=== PATIENT | female | born 1950 | race Two or more races ===

== ENCOUNTER 2016-12-09 09:58 | Inpatient (IN) | payer SELFPAY ==
[~2016-12-09] VITALS: Ht 157.5 cm; Wt 86.0 kg
[2016-12-09] MEDS ORDERED: SODIUM CHLORIDE 0.9% 1,000 ML IV ONE (10:32)
[2016-12-09 11:11] LABS: Basophils # (auto) 0.1 uL; Basophils % (auto) 0.8 % (0.0-2.0); Eosinophils # (auto) 0.1 uL; Eosinophils % (auto) 1.6 % (0.0-7.0); Hematocrit 32.6 % (36.0-46.0); Hemoglobin 10.8 g/dL (12.2-16.2); Lymphocytes # (auto) 1.1 uL; Lymphocytes % (auto) 11.4 % (10.0-50.0); Mean Corpuscular Hemoglobin 29.4 pg (28.0-32.0); Monocytes # (auto) 0.5 uL; Monocytes % (auto) 5.6 % (0.0-12.0); Neutrophils # (auto) 7.5 uL; Neutrophils % (auto) 80.6 % (37.0-80.0); Platelet Count (auto) 170 10^3/uL (140-450); Red Cell Distribution Width 16.1 % (11.8-14.3); White Blood Cell 9.3 10^3/uL (4.4-10.8)
[2016-12-09 11:21] LABS: INR 1.12 (0.9-1.15); Partial Thromboplastin Time 28.4 sec (22.64-33.71); Prothrombin Time 12.2 sec (9.37-12.3)
[2016-12-09 11:37] LABS: Lactic Acid w/Reflex 3.1 mmol/L (0.4-2.0)
[2016-12-09 11:42] LABS: REFLEX LACTIC ACID YES OR NO YES
[2016-12-09 11:42] LABS: Albumin 2.8 g/dL (3.4-5.0); BUN/Creatinine Ratio 5.3; Bilirubin, Total 0.4 mg/dL (0.2-1.0); Calcium 6.3 mg/dL (8.5-10.1); Potassium 5.3 mmol/L (3.5-5.1); Total Protein 7.3 g/dL (6.4-8.2)
[2016-12-09 11:51] LABS: B-Type Natriuretic Peptide 1652.36 pg/mL (0-100)
[2016-12-09 12:10] LABS: Temperature: 22.7 C (20.0-25.0)
[2016-12-09] MEDS ORDERED: ALBUTEROL SULF 2.5 MG/0.5ML(0.5%) NEB SOLN NEB STA (12:33)
[2016-12-09] MEDS ORDERED: metroNIDAZOLE 500MG/100ML 100 ML IV ONE (12:45)
[2016-12-09] MEDS ORDERED: DEXTROSE (50%) 50ML SYRG IV ONE (12:45)
[2016-12-09] MEDS ORDERED: InsuLIN REG 1unit/0.01ml Soln (100units/ml) IV ONE (12:45)
[2016-12-09] MEDS ORDERED: SODIUM BICARBONATE 8.4% INJ 50ML SYRINGE IV ONE (12:45)
[2016-12-09] MEDS ORDERED: cefTRIAXone 1GM/50ML D5W 50 ML IV ONE (12:45)
[2016-12-09] MEDS ORDERED: CALCIUM GLUC 4.65meq/50ml D5AE 50 ML IV ONE (12:45)
[2016-12-09] MEDS ORDERED: DEXTROSE (50%) 50ML SYRG IV PRN (13:15)
[2016-12-09] MEDS ORDERED: HYDROcodone-ACET 5/325MG TAB PO PRN (13:15)
[2016-12-09] MEDS ORDERED: ONDANSETRON HCL 4 MG/2 ML VIAL IV PRN (13:15)
[2016-12-09] MEDS ORDERED: NIFEdipine ER 30 MG TAB PO ONE (13:15)
[2016-12-09] MEDS ORDERED: FUROSEMIDE 20 MG/2 ML VIAL IV ONE (13:15)
[2016-12-09] MEDS ORDERED: NITROGLYCERIN 0.4 MG SL TAB SL PRN (13:15)
[2016-12-09] MEDS ORDERED: MORPHINE SULF INJ 2 MG/ML SYRINGE 1ML IV PRN ×2 (13:15)
[2016-12-09] MEDS ORDERED: ASPirin 81 mg TAB PO ONE (13:30)
[2016-12-09] MEDS: METOPROLOL TARTRATE 25 MG TAB PO SCH ×2 (14:35→22:15)
[2016-12-09] MEDS ORDERED: VANCOMYCIN HCL 1000 MG VL IP SCH (15:30)
[2016-12-09] MEDS ORDERED: PERITONEAL DIALYSIS 2.5% SOLN 2,000 ML IP ONE (18:00)
[2016-12-09 19:44] VITALS: BP_SYST 126; BP_DIAS 54; BP_DIAS 56
[2016-12-09 20:00] VITALS: BP 126/54
[2016-12-09] MEDS ORDERED: PERITONEAL DIALYSIS 2.5% IP ONE (20:00)
[2016-12-09] MEDS ORDERED: VANCOMYCIN IP ONE (20:00)
[2016-12-09] MEDS ORDERED: CEFTAZIDIME IP ONE (20:00)
[2016-12-09] MEDS ORDERED: NIFE30TA76 PO (20:03)
[2016-12-09] MEDS ORDERED: METO-159 PO (20:03)
[2016-12-09] MEDS ORDERED: ASPI81TA27 PO (20:03)
[2016-12-09] MEDS: InsuLIN REG 1unit/0.01ml Soln (100units/ml) SC SCH ×2 (20:36→22:00)
[2016-12-09] MEDS: ACCU-CHEK COMFORT CURVE STRIP VI SCH ×2 (20:37→22:00)
[2016-12-09 22:16] VITALS: BP 136/62
[2016-12-09 23:17] LABS: Body Fluid Polymorphonuclear 30 %
[2016-12-10] MEDS ORDERED: PERITONEAL DIALYSIS 2.5% SOLN 2,000 ML IP SCH ×2 (02:00)
[2016-12-10 05:42] VITALS: BP 162/70
[2016-12-10] MEDS: ACCU-CHEK COMFORT CURVE STRIP VI SCH ×4 (06:11→22:10)
[2016-12-10 06:14] LABS: BUN/Creatinine Ratio 5.7; Calcium 6.3 mg/dL (8.5-10.1); Potassium 4.8 mmol/L (3.5-5.1)
[2016-12-10] MEDS: InsuLIN REG 1unit/0.01ml Soln (100units/ml) SC SCH ×4 (06:20→22:11)
[2016-12-10 09:00] VITALS: BP 161/75
[2016-12-10] MEDS: cefTRIAXone 1GM/50ML D5W 50 ML IV SCH (09:11)
[2016-12-10] MEDS: PERITONEAL DIALYSIS 2.5% SOLN 2,000 ML IP SCH ×3 (09:12→21:23)
[2016-12-10] MEDS ORDERED: cefTAZidime 1 GM VL IP SCH (10:00)
[2016-12-10 10:12] LABS: Urine RBC None Seen /hpf (0 - 4)
[2016-12-10 10:44] LABS: Urine Bilirubin Negative (Negative); Urine Blood Negative /uL (Negative); Urine Color Yellow (Yellow); Urine Glucose 1+ mg/dL (Normal); Urine Ketone Negative (Negative); Urine Nitrite Negative (Negative); Urine Squamous Epithelial Cell FEW /hpf (<5); Urine Urobilinogen Normal (Negative)
[2016-12-10] MEDS: METOPROLOL TARTRATE 25 MG TAB PO SCH ×2 (11:23→21:50)
[2016-12-10] MEDS: ASPirin 81 mg TAB PO SCH (11:23)
[2016-12-10] MEDS: NIFEdipine ER 30 MG TAB PO SCH (11:24)
[2016-12-10] MEDS: MUPIROCIN 2% OINT 22GM TOP SCH (12:36)
[2016-12-10 17:00] VITALS: BP 157/64
[2016-12-10 21:30] VITALS: BP 153/76
[2016-12-10 23:30] VITALS: BP 142/61
[2016-12-11] MEDS: PERITONEAL DIALYSIS 2.5% SOLN 2,000 ML IP SCH ×2 (03:00→18:03)
[2016-12-11 05:19] VITALS: BP 126/53
[2016-12-11] MEDS: ACCU-CHEK COMFORT CURVE STRIP VI SCH ×4 (05:46→21:52)
[2016-12-11] MEDS: InsuLIN REG 1unit/0.01ml Soln (100units/ml) SC SCH ×4 (05:49→21:52)
[2016-12-11 09:00] VITALS: BP 125/68
[2016-12-11] MEDS: cefTRIAXone 1GM/50ML D5W 50 ML IV SCH (09:30)
[2016-12-11] MEDS: METOPROLOL TARTRATE 25 MG TAB PO SCH ×2 (10:20→21:47)
[2016-12-11] MEDS: MUPIROCIN 2% OINT 22GM TOP SCH (10:20)
[2016-12-11] MEDS: ASPirin 81 mg TAB PO SCH (10:20)
[2016-12-11] MEDS: NIFEdipine ER 30 MG TAB PO SCH (10:20)
[2016-12-11 14:44] LABS: Calcium 6.4 mg/dL (8.5-10.1)
[2016-12-11] MEDS ORDERED: hydrALAZINE HCL 25 MG TAB PO ONE (14:45)
[2016-12-11 17:00] VITALS: BP 125/47
[2016-12-11] MEDS ORDERED: PERITONEAL DIALYSIS 2.5% SOLN 2,000 ML IP SCH (18:00)
[2016-12-11] MEDS: ISOSORBIDE DINITRATE 10 MG TAB PO SCH (18:15)
[2016-12-11 21:14] VITALS: BP 126/55
[2016-12-11] MEDS: hydrALAZINE HCL 25 MG TAB PO SCH (22:00)
[2016-12-11 22:07] LABS: Body Fluid Polymorphonuclear 30 %
[2016-12-12] MEDS: PERITONEAL DIALYSIS 2.5% SOLN 2,000 ML IP SCH ×4 (00:03→17:38)
[2016-12-12 05:22] VITALS: BP 99/50
[2016-12-12] MEDS: ISOSORBIDE DINITRATE 10 MG TAB PO SCH ×3 (05:41→17:40)
[2016-12-12] MEDS: ACCU-CHEK COMFORT CURVE STRIP VI SCH ×4 (06:35→22:11)
[2016-12-12] MEDS: InsuLIN REG 1unit/0.01ml Soln (100units/ml) SC SCH ×4 (06:35→22:12)
[2016-12-12 09:29] VITALS: BP 137/64
[2016-12-12] MEDS ORDERED: NIFEdipine ER 30 MG TAB PO SCH (10:00)
[2016-12-12] MEDS: cefTRIAXone 1GM/50ML D5W 50 ML IV SCH (10:28)
[2016-12-12] MEDS: hydrALAZINE HCL 25 MG TAB PO SCH ×2 (10:29→21:53)
[2016-12-12] MEDS: ASPirin 81 mg TAB PO SCH (10:29)
[2016-12-12] MEDS: FUROSEMIDE 40 MG TAB PO SCH (10:29)
[2016-12-12] MEDS: METOPROLOL TARTRATE 25 MG TAB PO SCH ×2 (10:29→21:53)
[2016-12-12] MEDS: MUPIROCIN 2% OINT 22GM TOP SCH (10:30)
[2016-12-12 13:00] VITALS: BP 145/68
[2016-12-12 17:03] VITALS: BP 147/67
[2016-12-12 22:00] VITALS: BP 172/73
[2016-12-13 05:00] VITALS: BP 142/67
[2016-12-13] MEDS: ISOSORBIDE DINITRATE 10 MG TAB PO SCH ×3 (05:38→17:43)
[2016-12-13] MEDS: ACCU-CHEK COMFORT CURVE STRIP VI SCH ×4 (05:46→22:00)
[2016-12-13] MEDS: InsuLIN REG 1unit/0.01ml Soln (100units/ml) SC SCH ×4 (05:46→22:00)
[2016-12-13] MEDS: PERITONEAL DIALYSIS 2.5% SOLN 2,000 ML IP SCH ×5 (06:02→23:45)
[2016-12-13] MEDS: cefTRIAXone 1GM/50ML D5W 50 ML IV SCH (09:09)
[2016-12-13 09:42] VITALS: BP 150/79
[2016-12-13] MEDS: FUROSEMIDE 40 MG TAB PO SCH (10:48)
[2016-12-13] MEDS: ASPirin 81 mg TAB PO SCH (10:48)
[2016-12-13] MEDS: METOPROLOL TARTRATE 25 MG TAB PO SCH ×2 (10:49→23:35)
[2016-12-13] MEDS: hydrALAZINE HCL 25 MG TAB PO SCH ×2 (10:49→23:35)
[2016-12-13 11:48] VITALS: BP 157/85
[2016-12-13 17:04] VITALS: BP 150/67
[2016-12-13] MEDS: MUPIROCIN 2% OINT 22GM TOP SCH (18:45)
[2016-12-13 21:38] VITALS: BP 155/62
[2016-12-14 04:53] VITALS: BP 178/74
[2016-12-14] MEDS: PERITONEAL DIALYSIS 2.5% SOLN 2,000 ML IP SCH ×3 (05:58→17:44)
[2016-12-14] MEDS: ISOSORBIDE DINITRATE 10 MG TAB PO SCH ×3 (06:12→17:44)
[2016-12-14 06:35] LABS: Basophils # (auto) 0 uL; Basophils % (auto) 0.7 % (0.0-2.0); Eosinophils # (auto) 0.1 uL; Eosinophils % (auto) 1.3 % (0.0-7.0); Hematocrit 28.7 % (36.0-46.0); Hemoglobin 9.7 g/dL (12.2-16.2); Lymphocytes # (auto) 0.4 uL; Lymphocytes % (auto) 6.2 % (10.0-50.0); Mean Corpuscular Hemoglobin 29.9 pg (28.0-32.0); Mean Corpuscular Hgb Conc. 33.8 g/dL (32.0-36.0); Mean Corpuscular Volume 88.7 fL (80.0-100.0); Mean Platelet Volume 9.3 fL (6.9-10.8); Monocytes # (auto) 0.5 uL; Monocytes % (auto) 7.3 % (0.0-12.0); Neutrophils % (auto) 84.5 % (37.0-80.0); Platelet Count (auto) 191 10^3/uL (140-450); Red Cell Distribution Width 15.5 % (11.8-14.3); White Blood Cell 7.1 10^3/uL (4.4-10.8)
[2016-12-14 07:02] LABS: Calcium 6.7 mg/dL (8.5-10.1); Potassium 4.4 mmol/L (3.5-5.1)
[2016-12-14 07:05] LABS: BUN/Creatinine Ratio 4.3
[2016-12-14] MEDS: ACCU-CHEK COMFORT CURVE STRIP VI SCH ×4 (07:27→22:05)
[2016-12-14] MEDS: InsuLIN REG 1unit/0.01ml Soln (100units/ml) SC SCH ×4 (07:27→22:00)
[2016-12-14 07:46] VITALS: BP 158/81
[2016-12-14] MEDS: cefTRIAXone 1GM/50ML D5W 50 ML IV SCH (09:38)
[2016-12-14] MEDS: ASPirin 81 mg TAB PO SCH (09:39)
[2016-12-14] MEDS: hydrALAZINE HCL 25 MG TAB PO SCH ×2 (09:39→21:59)
[2016-12-14] MEDS: FUROSEMIDE 40 MG TAB PO SCH (09:39)
[2016-12-14] MEDS: MUPIROCIN 2% OINT 22GM TOP SCH (09:40)
[2016-12-14] MEDS: METOPROLOL TARTRATE 25 MG TAB PO SCH ×2 (09:40→22:00)
[2016-12-14 13:00] VITALS: BP 156/63
[2016-12-14 17:20] VITALS: BP 163/81
[2016-12-14 21:52] VITALS: BP 138/77
[2016-12-15 05:33] VITALS: BP 153/65
[2016-12-15] MEDS: PERITONEAL DIALYSIS 2.5% SOLN 2,000 ML IP SCH ×4 (05:50→17:38)
[2016-12-15] MEDS: ACCU-CHEK COMFORT CURVE STRIP VI SCH ×4 (06:22→22:28)
[2016-12-15] MEDS: InsuLIN REG 1unit/0.01ml Soln (100units/ml) SC SCH ×4 (06:22→22:28)
[2016-12-15] MEDS: ISOSORBIDE DINITRATE 10 MG TAB PO SCH ×3 (06:22→17:38)
[2016-12-15] MEDS: cefTRIAXone 1GM/50ML D5W 50 ML IV SCH (08:45)
[2016-12-15 09:00] VITALS: BP 185/78
[2016-12-15] MEDS: ASPirin 81 mg TAB PO SCH (09:18)
[2016-12-15] MEDS: hydrALAZINE HCL 25 MG TAB PO SCH ×3 (09:18→22:27)
[2016-12-15] MEDS: FUROSEMIDE 40 MG TAB PO SCH (09:19)
[2016-12-15] MEDS: METOPROLOL TARTRATE 25 MG TAB PO SCH ×2 (09:19→22:27)
[2016-12-15] MEDS: MUPIROCIN 2% OINT 22GM TOP SCH (09:20)
[2016-12-15 13:06] VITALS: BP 164/80
[2016-12-15 17:51] VITALS: BP 166/77
[2016-12-15 18:15] VITALS: BP 141/71
[2016-12-15 21:31] VITALS: BP 135/75
[2016-12-16] VITALS (7 sets, daily range): BP systolic 149–176; BP diastolic 68–81
[2016-12-16] MEDS: PERITONEAL DIALYSIS 2.5% SOLN 2,000 ML IP SCH ×5 (06:01→23:50)
[2016-12-16] MEDS: ISOSORBIDE DINITRATE 10 MG TAB PO SCH ×3 (06:02→17:51)
[2016-12-16] MEDS: ACCU-CHEK COMFORT CURVE STRIP VI SCH ×4 (06:31→21:48)
[2016-12-16] MEDS: InsuLIN REG 1unit/0.01ml Soln (100units/ml) SC SCH ×4 (06:31→22:01)
[2016-12-16] MEDS ORDERED: ceFAZolin 1GM/50ML D5W 50 ML IV ONE (08:22)
[2016-12-16] MEDS ORDERED: SUCCINYLCHOLINE CHLORIDE 20 MG/ML 10ML VIAL IV ONE (08:30)
[2016-12-16] MEDS ORDERED: fentaNYL CITRATE 100 MCG/2 ML VL ONE (08:32)
[2016-12-16] MEDS ORDERED: PROPOFOL 10 MG/ML 20 ML IV ONE (08:33)
[2016-12-16] MEDS ORDERED: DEXAMETHASONE SOD PHOS 10MG/1ML VIAL INJ ONE (08:33)
[2016-12-16] MEDS ORDERED: MEPERIDINE HCL (50 MG/ML) 1 ML VIAL ONE (08:33)
[2016-12-16] MEDS ORDERED: MIDAZOLAM HCL 1MG/1ML-2 ML VIAL ONE (08:33)
[2016-12-16] MEDS ORDERED: HEPARIN SODIUM (PORCINE) 5000 UNITS/ML 1ML VIAL ONE (08:49)
[2016-12-16] MEDS ORDERED: ceFAZolin 1GM VL ONE (08:49)
[2016-12-16] MEDS ORDERED: HEPARIN 1,000 UNITS/ml 1ML VIAL ONE (09:00)
[2016-12-16] MEDS ORDERED: KETOROLAC TROMETH 30 MG/ML 1ML VIAL IV ONE (09:30)
[2016-12-16] MEDS ORDERED: MORPHINE SULF INJ 2 MG/ML SYRINGE 1ML IV PRN (09:30)
[2016-12-16] MEDS ORDERED: MIDAZOLAM HCL 1MG/1ML-2 ML VIAL IV PRN (09:30)
[2016-12-16] MEDS ORDERED: LABETALOL HCL 5 MG/ML 4ML SYRINGE IV PRN (09:30)
[2016-12-16] MEDS ORDERED: ePHEDrine SULFATE 50 MG/ML AMP IV PRN (09:30)
[2016-12-16] MEDS ORDERED: hydrALAZINE HCL 20 MG/ML VL IV PRN (09:30)
[2016-12-16] MEDS ORDERED: ONDANSETRON HCL 4 MG/2 ML VIAL IV ONE (09:30)
[2016-12-16] MEDS: MUPIROCIN 2% OINT 22GM TOP SCH (10:00)
[2016-12-16] MEDS ORDERED: fentaNYL CITRATE 100 MCG/2 ML VL IV ONE (10:00)
[2016-12-16] MEDS: ASPirin 81 mg TAB PO SCH (11:28)
[2016-12-16] MEDS: FUROSEMIDE 40 MG TAB PO SCH (11:30)
[2016-12-16] MEDS: METOPROLOL TARTRATE 25 MG TAB PO SCH ×2 (11:32→21:48)
[2016-12-16] MEDS: cefTRIAXone 1GM/50ML D5W 50 ML IV SCH (12:07)
[2016-12-16] MEDS: hydrALAZINE HCL 25 MG TAB PO SCH ×2 (13:57→21:47)
[2016-12-17] VITALS (7 sets, daily range): BP systolic 140–161; BP diastolic 60–73
[2016-12-17] MEDS: PERITONEAL DIALYSIS 2.5% SOLN 2,000 ML IP SCH ×3 (06:00→18:00)
[2016-12-17] MEDS: hydrALAZINE HCL 25 MG TAB PO SCH ×3 (06:06→22:16)
[2016-12-17] MEDS: ISOSORBIDE DINITRATE 10 MG TAB PO SCH ×3 (06:08→18:00)
[2016-12-17 06:14] LABS: Basophils # (auto) 0 uL; Basophils % (auto) 0.2 % (0.0-2.0); Eosinophils # (auto) 0 uL; Hematocrit 27.3 % (36.0-46.0); Hemoglobin 9.3 g/dL (12.2-16.2); Lymphocytes # (auto) 0.5 uL; Lymphocytes % (auto) 5.9 % (10.0-50.0); Mean Corpuscular Hemoglobin 29.9 pg (28.0-32.0); Mean Corpuscular Volume 88.2 fL (80.0-100.0); Mean Platelet Volume 9.6 fL (6.9-10.8); Monocytes # (auto) 0.4 uL; Monocytes % (auto) 5.3 % (0.0-12.0); Neutrophils # (auto) 7.4 uL; Neutrophils % (auto) 88.6 % (37.0-80.0); Platelet Count (auto) 201 10^3/uL (140-450); Red Cell Distribution Width 15.4 % (11.8-14.3); White Blood Cell 8.4 10^3/uL (4.4-10.8)
[2016-12-17] MEDS: ACCU-CHEK COMFORT CURVE STRIP VI SCH ×4 (06:18→22:18)
[2016-12-17] MEDS: InsuLIN REG 1unit/0.01ml Soln (100units/ml) SC SCH ×4 (06:19→22:45)
[2016-12-17 06:33] LABS: BUN/Creatinine Ratio 4.9; Calcium 6.9 mg/dL (8.5-10.1)
[2016-12-17] MEDS: cefTRIAXone 1GM/50ML D5W 50 ML IV SCH (09:35)
[2016-12-17] MEDS: FUROSEMIDE 40 MG TAB PO SCH (09:46)
[2016-12-17] MEDS: METOPROLOL TARTRATE 25 MG TAB PO SCH ×2 (09:46→22:17)
[2016-12-17] MEDS: ASPirin 81 mg TAB PO SCH (09:46)
[2016-12-17] MEDS: MUPIROCIN 2% OINT 22GM TOP SCH (09:50)
[2016-12-17] MEDS ORDERED: HYDROcodone-ACET 5/325MG TAB PO PRN (10:00)
[2016-12-17] MEDS ORDERED: MORPHINE SULF INJ 2 MG/ML SYRINGE 1ML IV PRN (10:00)
[2016-12-17] MEDS ORDERED: ETOMIDATE (2MG/ML) 20ML VIAL IV ONE (11:16)
[2016-12-17] MEDS: PANTOPRAZOLE 40 MG TAB PO SCH (15:05)
[2016-12-18 05:00] VITALS: BP 159/72
[2016-12-18] MEDS: PERITONEAL DIALYSIS 2.5% SOLN 2,000 ML IP SCH ×4 (06:56→18:17)
[2016-12-18] MEDS: hydrALAZINE HCL 25 MG TAB PO SCH ×3 (06:57→22:10)
[2016-12-18] MEDS: ISOSORBIDE DINITRATE 10 MG TAB PO SCH ×3 (06:57→18:18)
[2016-12-18] MEDS: InsuLIN REG 1unit/0.01ml Soln (100units/ml) SC SCH ×4 (06:57→22:00)
[2016-12-18] MEDS: ACCU-CHEK COMFORT CURVE STRIP VI SCH ×4 (06:57→22:10)
[2016-12-18 09:09] VITALS: BP 137/79
[2016-12-18] MEDS: FUROSEMIDE 40 MG TAB PO SCH (09:53)
[2016-12-18] MEDS: PANTOPRAZOLE 40 MG TAB PO SCH (09:54)
[2016-12-18] MEDS: ASPirin 81 mg TAB PO SCH (09:54)
[2016-12-18] MEDS: MUPIROCIN 2% OINT 22GM TOP SCH (09:54)
[2016-12-18] MEDS: METOPROLOL TARTRATE 25 MG TAB PO SCH ×2 (09:54→22:10)
[2016-12-18 13:25] VITALS: BP 144/87
[2016-12-18 17:07] VITALS: BP 163/79
[2016-12-18 20:00] VITALS: BP 159/82
[2016-12-18 22:00] VITALS: BP 159/85
[2016-12-19] MEDS: PERITONEAL DIALYSIS 2.5% SOLN 2,000 ML IP SCH ×2 (00:28→05:58)
[2016-12-19 05:00] VITALS: BP 157/78
[2016-12-19] MEDS: hydrALAZINE HCL 25 MG TAB PO SCH ×2 (05:58→13:28)
[2016-12-19] MEDS: ISOSORBIDE DINITRATE 10 MG TAB PO SCH ×2 (05:59→11:26)
[2016-12-19] MEDS: ACCU-CHEK COMFORT CURVE STRIP VI SCH ×2 (06:53→11:26)
[2016-12-19] MEDS: InsuLIN REG 1unit/0.01ml Soln (100units/ml) SC SCH ×2 (06:53→12:27)
[2016-12-19 08:00] VITALS: BP 188/80
[2016-12-19] MEDS: PANTOPRAZOLE 40 MG TAB PO SCH (09:24)
[2016-12-19] MEDS: METOPROLOL TARTRATE 25 MG TAB PO SCH (09:25)
[2016-12-19] MEDS: ASPirin 81 mg TAB PO SCH (09:25)
[2016-12-19] MEDS: FUROSEMIDE 40 MG TAB PO SCH (09:25)
[2016-12-19] MEDS: MUPIROCIN 2% OINT 22GM TOP SCH (09:26)
[2016-12-19 09:38] VITALS: BP 188/80
[2016-12-19] MEDS ORDERED: PERITONEAL DIALYSIS 2.5% IP SCH (14:00)
[2016-12-19 14:13] VITALS: BP 182/85
[2016-12-19 14:27] VITALS: BP 182/85
[2016-12-20 02:16] LABS: Body Fluid Polymorphonuclear 18 %
[2016-12-22 13:11] LABS: Vitamin D-2 25-Hydroxy <1.0 ng/mL (.)
== END 2016-12-19 15:05 | disposition home or self-care (01) | DRG 919 ==
LOC: ER 09:58 → TELE 09:59 → TELE-CENTR 17:06 → CENTRAL 12-18 17:20
PROVIDERS: ADMIT Internal Medicine; ATTEND Internal Medicine
PROC: 3E1M39Z Irrigation of Peritoneal Cavity using Dialysate, Percutaneous Approach (ICD-10-PCS; 2016-12-16)
PROC: 0WPGX3Z Removal of Infusion Device from Peritoneal Cavity, External Approach (ICD-10-PCS; 2016-12-16)
PROC: 0WHG33Z Insertion of Infusion Device into Peritoneal Cavity, Percutaneous Approach (ICD-10-PCS; principal; 2016-12-16 08:35)
DX: T85.621A Displacement of intraperitoneal dialysis catheter, initial encounter (principal); A41.9 Sepsis, unspecified organism; E44.0 Moderate protein-calorie malnutrition; I13.2 Hypertensive heart and chronic kidney disease with heart failure and with stage 5 chronic kidney disease, or end stage renal disease; N18.6 End stage renal disease; E11.21 Type 2 diabetes mellitus with diabetic nephropathy; K65.9 Peritonitis, unspecified; I50.43 Acute on chronic combined systolic (congestive) and diastolic (congestive) heart failure; T85.611A Breakdown (mechanical) of intraperitoneal dialysis catheter, initial encounter; E11.22 Type 2 diabetes mellitus with diabetic chronic kidney disease; E66.9 Obesity, unspecified; H54.7 Unspecified visual loss; D64.9 Anemia, unspecified; E11.319 Type 2 diabetes mellitus with unspecified diabetic retinopathy without macular edema; E87.5 Hyperkalemia; I34.0 Nonrheumatic mitral (valve) insufficiency; Y84.1 Kidney dialysis as the cause of abnormal reaction of the patient, or of later complication, without mention of misadventure at the time of the procedure; Z99.2 Dependence on renal dialysis; Y92.89 Other specified places as the place of occurrence of the external cause; Z79.82 Long term (current) use of aspirin; Z79.899 Other long term (current) drug therapy; Z83.3 Family history of diabetes mellitus; Z68.34 Body mass index [BMI] 34.0-34.9, adult
CPT/HCPCS: 36415; 71010; 74176; 80048; 80053; 80202; 81001; 82150; 82306; 82728; 82962; 83036; 83540; 83550; 83605; 83690; 83880; 83970; 84100; 84132; 85025; 85610; 85730; 87040; 87070; 87205; 89051; 93005; 93306; 94644; 96361; 96365; 96367; 96375; 97116; 97163; 97530; 99291; J0330; J0610; J0690; J0696; J1100; J1815; J2250; J2405; J2704; J3490